=== PATIENT | male | born 1945 | race Caucasian/White ===

== ENCOUNTER → 2016-10-03 | Outpatient (CLI) | payer BC, OTHER ==
[2016-01-06 13:19] VITALS: BP 138/65
== END ==
LOC: LAB 20:12
PROVIDERS: ATTEND Internal Medicine Gastroenterology
DX: K64.0 First degree hemorrhoids (principal)
CPT/HCPCS: 82270

== ENCOUNTER 2017-01-14 09:10 | Day surgery (SDC) | payer BC, OTHER ==
[2017-01-14] MEDS ORDERED: TETRACAINE 0.5% OPHTH 1 DOSE AFFEYE ONE ×4 (09:26→13:20)
[2017-01-14] MEDS ORDERED: VIGAMOX 0.5% OPHTH 1 DOSE AFFEYE ONE ×6 (09:27→13:41)
[2017-01-14] MEDS ORDERED: PROLENSA OPHTH 1 DOSE AFFEYE ONE (09:38)
[2017-01-14] MEDS ORDERED: ALPHAGAN-P OPHTH 1 DOSE AFFEYE ONE (09:39)
[2017-01-14] MEDS ORDERED: AK-DILATE 2.5% OPHTH 1 DOSE OP ONE ×5 (09:40→09:44)
[2017-01-14] MEDS ORDERED: CYCLOGYL 1% OPHTH 1 DOSE OP ONE ×5 (09:40→09:44)
[2017-01-14] MEDS ORDERED: MYDRIACIL OPHTH 1 DOSE AFFEYE ONE ×5 (09:40→09:44)
[2017-01-14] MEDS ORDERED: NS 500 ML IV 500 ML IV ONE (09:44)
[2017-01-14] MEDS ORDERED: BETADINE OPHTH SOLN 5% EACHEYE ONE (12:56)
[2017-01-14] MEDS ORDERED: XYLOCAINE-MPF 1% IJ ONE ×2 (12:58→13:20)
[2017-01-14] MEDS ORDERED: DUOVISC IO ONE ×2 (12:58→13:20)
[2017-01-14] MEDS ORDERED: ADRENALINE CHL INJ IJ ONE ×2 (12:58→13:20)
[2017-01-14] MEDS ORDERED: BSS OPHTH (PLAIN) 500 ML with VANCOMYCIN HCL 500 MG VIAL 25 MG, ADRENALINE CHL INJ 1 MG IR ONE ×9 (13:00)
[2017-01-14] MEDS ORDERED: MIOCHOL-E IO ONE (13:33)
[2017-01-14] MEDS ORDERED: VISCOAT 0.5 ML IO ONE (13:33)
[2017-01-14 14:56] VITALS: BP 166/84
== END 2017-01-14 14:10 | disposition home or self-care (01) ==
LOC: SURG1 09:10
PROVIDERS: ATTEND Ophthalmology
PROC: 08DK3ZZ Extraction of Left Lens, Percutaneous Approach (ICD-10-PCS; principal; 2017-01-14 16:30)
PROC: 08RK3JZ Replacement of Left Lens with Synthetic Substitute, Percutaneous Approach (ICD-10-PCS; principal; 2017-01-14 16:30)
DX: H25.12 Age-related nuclear cataract, left eye (principal); H25.012 Cortical age-related cataract, left eye; H25.042 Posterior subcapsular polar age-related cataract, left eye; H52.222 Regular astigmatism, left eye
CPT/HCPCS: 99100; V2797; A4217; J0170; J3370

== ENCOUNTER 2017-02-18 07:50 | Day surgery (SDC) | payer OTHER ==
[2017-02-18] MEDS ORDERED: TETRACAINE 0.5% OPHTH 1 DOSE AFFEYE ONE ×4 (08:40→11:16)
[2017-02-18] MEDS ORDERED: VIGAMOX 0.5% OPHTH 1 DOSE AFFEYE ONE ×5 (08:41→11:29)
[2017-02-18] MEDS ORDERED: NS 500 ML IV 500 ML IV ONE (08:47)
[2017-02-18] MEDS ORDERED: PROLENSA OPHTH 1 DOSE AFFEYE ONE (08:52)
[2017-02-18] MEDS ORDERED: ALPHAGAN-P OPHTH 1 DOSE AFFEYE ONE (08:53)
[2017-02-18] MEDS ORDERED: VISINE-A OPHTH 1 DOSE AFFEYE ONE (08:54)
[2017-02-18] MEDS ORDERED: MYDRIACIL OPHTH 1 DOSE AFFEYE ONE ×5 (08:55→08:59)
[2017-02-18] MEDS ORDERED: AK-DILATE 2.5% OPHTH 1 DOSE OP ONE ×5 (08:55→08:59)
[2017-02-18] MEDS ORDERED: CYCLOGYL 1% OPHTH 1 DOSE OP ONE ×5 (08:55→08:59)
[2017-02-18] MEDS ORDERED: BETADINE OPHTH SOLN 5% EACHEYE ONE (10:58)
[2017-02-18] MEDS ORDERED: ADRENALINE CHL INJ IJ ONE ×2 (11:02→11:16)
[2017-02-18] MEDS ORDERED: XYLOCAINE-MPF 1% IJ ONE ×2 (11:02→11:16)
[2017-02-18] MEDS ORDERED: DUOVISC IO ONE ×2 (11:02→11:16)
[2017-02-18] MEDS ORDERED: BSS OPHTH (PLAIN) 500 ML with VANCOMYCIN HCL 500 MG VIAL 25 MG, ADRENALINE CHL INJ 1 MG IR ONE ×6 (11:03)
[2017-02-18] MEDS ORDERED: DIPRIVAN VIAL ONE (13:46)
[2017-02-18 15:17] VITALS: BP 154/70
== END 2017-02-18 11:55 | disposition home or self-care (01) ==
LOC: SURG1 07:50
PROVIDERS: ATTEND Ophthalmology
PROC: 08RJ3JZ Replacement of Right Lens with Synthetic Substitute, Percutaneous Approach (ICD-10-PCS; principal; 2017-02-18 01:30)
PROC: 08DJ3ZZ Extraction of Right Lens, Percutaneous Approach (ICD-10-PCS; principal; 2017-02-18 01:30)
DX: H25.11 Age-related nuclear cataract, right eye (principal); H25.011 Cortical age-related cataract, right eye; H25.041 Posterior subcapsular polar age-related cataract, right eye; H52.221 Regular astigmatism, right eye
CPT/HCPCS: 99100; V2797; A4217; J0170; J3370; J3490

== ENCOUNTER → 2017-09-30 | Outpatient (CLI) | payer OTHER | LOC: LAB 18:29 | PROVIDERS: ATTEND Internal Medicine Gastroenterology | DX: K64.0 First degree hemorrhoids (principal) | CPT/HCPCS: 82274 ==